=== PATIENT | female | born 1940 | race Hispanic/Latino ===

== ENCOUNTER 2017-02-23 21:09 | Observation (INO) | payer SELFPAY ==
[2017-02-23] MEDS ORDERED: Sodium Chloride 0.9% 1,000 ML IV STA (21:36)
--- NOTE | 2017-02-23 21:36 | ED PDOC ---
Arrival/HPI - General Chief Complaint: Chest Pain Time Seen by Provider: 02/23/17 21:15 Historian: Patient, Family (daughter translated ) - History of Present Illness Narrative History of Present Illness (Text): 02/23/17 21:32 76 year old female, whose past medical history includes arrhythma, left sided pacemaker, myocardial infarction, and CVA, presents to the emergency department complaining of midsternal chest pain that began last night. Patient's daughter who translated for the patient states that she had low irregular blood pressure since her flight home last night from [place]. She reports her blood pressure was around "64/42 and 90/60" last night. Patient states to have weakness, dehydration, nausea, shortness of breath, and diaphoresis, but denies any fever , chest pain, shortness of breath, vomiting, diarrhea, urinary symptoms, back pain, neck pain, headache, dizziness, or any other complaints. Time/Duration: Other (last night) Symptom Onset: Gradual Symptom Course: Unchanged Quality: Pressure Activities at Onset: Light Context: Other (Patient was on a plane last night) Past Medical History - Provider Review Nursing Documentation Reviewed: Yes - Travel History Have you recently traveled outside [place] w/in the past 3 mons?: Yes If Yes, travel location?: [place] - Infectious Disease Hx of Infectious Diseases: None - Tetanus Immunization Tetanus Immunization: Unknown - Cardiac Hx Cardiac Arrhythmia: Yes Hx HI: Yes Hx Hypertension: Yes Hx Pacemaker: Yes - Neurological HX Cerebrovascular Accident: Yes - Endocrine/Metabolic Hx Hypothyroidism: Yes - Psychiatric Hx Depression: No Hx Emotional Abuse: No Hx Physical Abuse: No Hx Substance Use: No - Suicidal Assessment Feels Threatened In Home Enviroment: No Family/Social History - Physician Review Nursing Documentation Reviewed: Yes Family/Social History: No Known Family HX Smoking Status: no Hx Alcohol Use: No Hx Substance Use: No Allergies/Home Meds Allergies/Adverse Reactions: Allergies No Known Allergies Allergy (Verified 05/23/13 10:53) Home Medications: Home Meds Medication Instructions Recorded Confirmed Biosotal 80 80 mg PO DAILY 02/23/17 02/23/17 Diuver 5 mg PO DAILY 02/23/17 02/23/17 Valsartan [Diovan] 160 mg PO DAILY 02/23/17 02/23/17 Review of Systems - Physician Review All systems were reviewed & negative as marked: Yes - Review of Systems Constitutional: absent: Fevers Respiratory: SOB Cardiovascular: Chest Pain Gastrointestinal: Nausea, Appetite Changes (Dehyradtion ). absent: Diarrhea, Vomiting Genitourinary Female: absent: Dysuria, Frequency, Hematuria Musculoskeletal: absent: Back Pain, Neck Pain Neurological: absent: Headache, Dizziness Endocrine: Diaphoresis Physical Exam - Physical Exam Narrative Physical Exam (Text): 02/23/17 21:32 Constitutional: No acute distress. Head: Normocephalic. Atraumatic. Eyes: PERRL. ENT: Moist mucous membranes. Neck: Supple. Cardiovascular: irregular rhythm. Left sided pacemaker. Chest: No tenderness. Respiratory: Clear to auscultation bilaterally. GI: Soft. Nontender. Nondistended. Back: No CVA tenderness. Musculoskeletal: Mild lower extremity edema. Skin: No rash. Neurologic: Alert, no focal deficit. Vital Signs Reviewed: Yes Vital Signs Temp Pulse Resp BP Pulse Ox 02/24/17 01:36 100 H 16 80/46 L 97 02/24/17 00:50 108 H 16 88/49 L 98 02/24/17 00:30 101 H 16 72/46 L 96 02/23/17 23:54 104 H 16 97/58 L 97 02/23/17 23:45 105 H 16 97/58 L 97 02/23/17 21:52 115 H 85/61 L 02/23/17 21:10 97.7 F 117 H 18 88/52 L 97 Temperature: Afebrile Blood Pressure: Hypotensive Pulse: Tachycardic Respiratory Rate: Normal Appearance: Positive for: Well-Appearing, Non-Toxic, Comfortable Pain Distress: None Mental Status: Positive for: Alert and Oriented X 3 Medical Decision Making ED Course and Treatment: 02/23/17 21:36 Impression: 76 year old female present complaining of midsternal chest pain associated with irregular low blood pressure post flight and shortness of breath. Plan: -- Labs -- IV Fluids -- Lopressor -- Urine Culture -- Urinalysis -- EKG -- Reassess and disposition Progress Notes: 02/23/17 21:49 EKG shows Atrial fibrillation at 122 BPM, PVC, with no ST elevations or depressions. 02/23/17 23:[address] Baron who is aware and agrees with the plan. Accepts patient into service. Patient will go to ICU observation for chest pain, tachycardia, hypotension, rapid afib, UTI. - Lab Interpretations Lab Results: 02/23/17 21:30 02/23/17 21:30 Lab Results 02/23/17 21:52: Urine Color Yellow, Urine Appearance Clear, Urine pH 6.0, Ur Specific [place] 1.025, Urine Protein Negative, Urine Glucose (UA) Negative, Urine Ketones Trace H, Urine Blood Trace-intact H, Urine Nitrate Negative, Urine Bilirubin Negative, Urine Urobilinogen 0.2, Ur Leukocyte Esterase Moderate H, Urine RBC 1 - 3, Urine WBC 20 - 25, Ur Epithelial Cells 4 - 5, Amorphous Sediment Few, Urine Bacteria Many, Hyaline Casts 1-3, Fine Granular Casts 0 - 2, Urine Other Uyeast 02/23/17 21:30: Sodium 142, Potassium 4.5, Chloride 108 H, Carbon Dioxide 26, Anion Gap 13, BUN 25 H, Creatinine 1.2, Est GFR ( Amer) 53, Est GFR (Non- Af Amer) 44, Random Glucose 102, Calcium 9.5, Total Bilirubin 0.5, AST 46 H, ALT 46, Alkaline Phosphatase 66, Total Creatine Kinase 425 H, CK-MB (CK-2) 5.2 H , CK-MB (CK-2) % 1.2 L, Troponin I 0.03, NT-Pro-B Natriuret Pep 2210 H, Total Protein 6.0, Albumin 3.6, Globulin 2.4, Albumin/Globulin Ratio 1.5, Lipase 59 02/23/17 21:30: PT 10.9, INR 1.01, APTT 25.7, D-Dimer, Quantitative 0.27 02/23/17 21:30: WBC 7.2, RBC 4.36, Hgb 12.0, Hct 38.1, MCV 87.4, MCH 27.5, MCHC 31.5, RDW 16.5 H, Plt Count 150, MPV 11.3 H, Gran % 48.0 L, Lymph % (Auto) 37.0 H, [place] % (Auto) 12.9 H, Eos % (Auto) 1.5, Baso % (Auto) 0.6, Gran # 3.45, Lymph # 2.7, [place] # 0.9 H, Eos # 0.1, Baso # 0.04 I have reviewed the lab results: Yes - EKG Interpretation Interpreted by ED Physician: Yes Type: 12 lead EKG - Medication Orders Current Medication Orders: Acetaminophen (Tylenol 325mg Tab) 650 mg PO Q6H PRN PRN Reason: Pain, moderate (4-7) Aspirin (Aspirin Chewable) 81 mg PO DAILY JOSE F Atorvastatin Calcium (Lipitor) 20 mg PO HS JOSE F Ciprofloxacin (Cipro) 250 mg PO Q12H JOSE F PRN Reason: Protocol Heparin Sodium (Porcine) (Heparin Lock Flush) 0 units IVP Q4H JOSE F PRN Reason: Protocol Amiodarone HCl/Dextrose (Nexterone 360 Mg In D5w 200 Ml (Premix)) 360 mg in 200 mls @ 16.667 mls/hr IV .Q12H JOSE F; 0.5 MG/MIN PRN Reason: Protocol Amiodarone HCl/Dextrose (Nexterone 360 Mg In D5w 200 Ml (Premix)) 360 mg in 200 mls @ 33.333 mls/hr IV .Q6H ONE; 1 MG/MIN PRN Reason: Protocol Stop: 02/24/17 07:14 Metoprolol Tartrate (Lopressor) 25 mg PO BID JOSE F Pantoprazole Sodium (Protonix Susp) 40 mg PO 0600,1600 JOSE F Rivaroxaban (Xarelto) 20 mg PO DAILY JOSE F PRN Reason: Protocol Discontinued Medications Aspirin (Aspirin) 325 mg PO STAT STA Stop: 02/23/17 22:43 Last Admin: 02/23/17 23:31 Dose: 325 mg Sodium Chloride (Sodium Chloride 0.9%) 1,000 mls @ 999 mls/hr IV .Q1H1M STA Stop: 02/23/17 22:36 Last Admin: 02/23/17 21:52 Dose: 999 mls/hr Ciprofloxacin (Cipro 400mg/200ml Dsw) 400 mg in 200 mls @ 133.3 mls/hr IVPB STAT STA PRN Reason: Protocol Stop: 02/24/17 00:18 Last Admin: 02/23/17 23:31 Dose: 133.3 mls/hr Amiodarone HCl/Dextrose (Nexterone 150 Mg In Dextrose 100 Ml (Premix)) 150 mg in 100 mls @ 600 mls/hr IVPB ONCE ONE PRN Reason: Protocol Stop: 02/24/17 00:55 Sodium Chloride (Sodium Chloride 0.9%) 1,000 mls @ 75 mls/hr IV .[id number] ONE Stop: 02/24/17 14:02 Iodixanol (Visipaque 320 Mg/Ml 100 Ml) Confirm Administered Dose 100 ml IV .STK- MED ONE Stop: 02/23/17 22:39 Metoprolol Tartrate (Lopressor) 5 mg IVP STAT STA Stop: 02/23/17 21:38 Last Admin: 02/23/17 21:52 Dose: 5 mg - Scribe Statement The provider has reviewed the documentation as recorded by the Yamilethibkrista Olmstead All medical record entries made by the Roney were at my direction and personally dictated by me. I have reviewed the chart and agree that the record accurately reflects my personal performance of the history, physical exam, medical decision making, and the department course for this patient. I have also personally directed, reviewed, and agree with the discharge instructions and disposition. Disposition/Present on Arrival - Present on Arrival Any Indicators Present on Arrival: No History of DVT/PE: No History of Uncontrolled Diabetes: No Urinary Catheter: No History of Decub. Ulcer: No History Surgical Site Infection Following: None - Disposition Have Diagnosis and Disposition been Completed?: Yes Diagnosis: Rapid atrial fibrillation, Chest pain, UTI (urinary tract infection) Disposition: HOSPITALIZED Disposition Time: 23:09 Patient Plan: Admission, ICU Condition: FAIR
[2017-02-23] MEDS ORDERED: Metoprolol 1 mg/ml Inj IVP STA (21:37)
[2017-02-23 21:48] LABS: BASO # 0.04 K/mm3 (0.0-2.0); BASO % 0.6 % (0.0-3.0); EOS # 0.1 (0.0-0.7); EOS % 1.5 % (1.5-5.0); GRAN # 3.45 (1.4-6.5); HEMATOCRIT 38.1 % (36.0-48.0); LYMPH # 2.7 (1.2-3.4); MEAN CELL VOLUME 87.4 fl (80.0-105.0); MEAN CORPUSCULAR HEMOGLOBIN 27.5 pg (25.0-35.0); MEAN CORPUSCULAR HGB CONC 31.5 g/dl (31.0-37.0); MEAN PLATELET VOLUME 11.3 fl (7.0-11.0); MONO # 0.9 (0.1-0.6); MONO % 12.9 % (1.0-6.0); RED CELL DISTRIBUTION WIDTH 16.5 % (11.5-14.5); WHITE BLOOD COUNT 7.2 10^3/ul (4.5-11.0)
[2017-02-23 21:56] LABS: ALB/GLOB RATIO 1.5 (1.1-1.8); BILIRUBIN,TOTAL 0.5 mg/dL (0.2-1.3); CALCIUM 9.5 mg/dL (8.4-10.5); POTASSIUM 4.5 mmol/L (3.6-5.0)
[2017-02-23 22:05] LABS: URINE BILIRUBIN NEGATIVE (NEGATIVE); URINE BLOOD TRACE-INTACT (NEGATIVE); URINE GLUCOSE (UA) NEGATIVE (NEGATIVE); URINE KETONE TRACE mg/dL (NEGATIVE); URINE LEUKOCYTE ESTERASE MODERATE Leu/uL (NEGATIVE); URINE PROTEIN NEGATIVE mg/dL (<30 mg/dL); URINE UROBILINOGEN 0.2 E.U./dL (<1 E.U./dL)
[2017-02-23 22:06] LABS: URINE APPEARANCE CLEAR (CLEAR); URINE COLOR YELLOW (YELLOW)
[2017-02-23 22:08] LABS: TROPONIN I 0.03 ng/mL
[2017-02-23 22:13] LABS: D DIMER 0.27 mg/L FEU (0-0.50); INR 1.01 (0.93-1.08); PARTIAL THROMBOPLASTIN TIME 25.7 Seconds (23.7-30.8)
[2017-02-23 22:22] LABS: URINE BACTERIA MANY (NEG); URINE WBC 20 - 25 /hpf (0-6)
[2017-02-23 22:23] LABS: URINE AMORPHOUS SEDIMENT FEW
[2017-02-23] MEDS ORDERED: Iodixanol 320 MG/ML 100 ML BOTTLE IV ONE (22:38)
[2017-02-23] MEDS ORDERED: Ciprofloxacin 400mg/200ml D5W 400 MG/200 ML BAG IVPB STA (22:48)
[2017-02-24] MEDS ORDERED: Sodium Chloride 0.9% 1,000 ML IV ONE (00:43)
[2017-02-24] MEDS ORDERED: Amiodarone 150 mg/D5W 100 ml 150 MG/100 ML BAG IVPB ONE (00:46)
--- NOTE | 2017-02-24 01:02 | CP.PCM.CON ---
<LAIMONISHA - Last Filed: 02/24/17 00:58> History of Present Illness - History of Present Illness History of Present Illness: Monisha Nicole, PGY1, Consult Note for Dr. 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 Pt just landed from her flight yesterday night from [place], and started feeling fatigues, diaphoretic, chest pressure, radiating to left jaw, palpitations. Pt also c/o mild productive cough, denies f/c/n/v, poor appetite, poor oral intake, sob, hemoptysis, pleutric cp, dysuria, frq, hematuria, h/a, leg swelling. Pt's daughter took BP at home and pt founf to be hypotensive, BP 64/42, 90/60, with some denies dizziness, syncope. In ED, pt found to be in afib with RVR, HR 122 , no st changes, hypotensive 70-80s/50s, neg d dimer, trop negx1, bnp 2210, ck mb 5.2. Received ASA 325 mgx1, lopressor 5mg IVx1, 1L NS bolus, Ciprox1, UA + UTI Currently, pt still hypotensive, afib with HR 115, denies chest pressure, + palpitations. ICU consulted for management of afib with RVR with underlying UTI. 10 point ROS obtained and neg except as per HPI. PMH: afib, L sided pacemaker, ME x 1 stent, CVA, HTN, hypothyroidism, CHF PSH: thryoidectomy, uterine fibroid removal ALL: NKA SH: Mom, htn Brother HTN FH: denies alcohol, tobacco, drug use. lives with daughter's apt in [place]. Flew from [place] last night. Walks by self, fully functional. No PMD in [place]; f/u regularly with PMD in [place] Review of Systems - Review of Systems All systems: reviewed and no additional remarkable complaints except Review of Systems: as per HPI Past Patient History - Infectious Disease Hx of Infectious Diseases: None - Tetanus Immunizations Tetanus Immunization: Unknown - Past Social History Smoking Status: no - CARDIAC Hx Cardia Arrhythmia: Yes Hx Heart Attack: Yes Hx Hypertension: Yes Hx Pacemaker: Yes - NEUROLOGICAL HX Cerebrovascular Accident: Yes - ENDOCRINE/METABOLIC Hx Hypothyroidism: Yes - PSYCHIATRIC Hx Depression: No Hx Emotional Abuse: No Hx Physical Abuse: No Hx Substance Use: No Meds Home Medications: Home Medication List Medication Instructions Recorded Confirmed Type Cephalexin [Keflex] 500 mg PO Q8 #15 cap 02/25/17 Rx Digoxin 0.125 mg PO DAILY #30 solution 02/25/17 Rx Levothyroxine [Synthroid] 112 mcg PO 0600 #30 tab 02/25/17 Rx Rivaroxaban [Xarelto] 20 mg PO DAILY #30 tab 02/25/17 Rx Simvastatin [Zocor] 20 mg PO DAILY #30 tablet 02/25/17 Rx Allergies/Adverse Reactions: Allergies Allergy/AdvReac Type Severity Reaction Status Date / Time No Known Allergies Allergy Verified 05/23/13 10:53 - Medications Medications: Current Medications Acetaminophen (Tylenol 325mg Tab) 650 mg PO Q6H PRN PRN Reason: Pain, moderate (4-7) Aspirin (Aspirin Chewable) 81 mg PO DAILY JOSE F Atorvastatin Calcium (Lipitor) 20 mg PO HS JOSE F Ciprofloxacin (Cipro) 250 mg PO Q12H JOSE F PRN Reason: Protocol Amiodarone HCl/Dextrose (Nexterone 360 Mg In D5w 200 Ml (Premix)) 360 mg in 200 mls @ 16.667 mls/hr IV .Q12H JOSE F; 0.5 MG/MIN PRN Reason: Protocol Sodium Chloride (Sodium Chloride 0.9%) 1,000 mls @ 75 mls/hr IV .[id number] ONE Stop: 02/24/17 14:02 Metoprolol Tartrate (Lopressor) 25 mg PO BID JOSE F Pantoprazole Sodium (Protonix Susp) 40 mg PO 0600,1600 JOSE F Rivaroxaban (Xarelto) 20 mg PO DAILY JOSE F PRN Reason: Protocol Physical Exam - Constitutional Appears: Non-toxic, No Acute Distress, Younger Than Stated Age - Head Exam Head Exam: ATRAUMATIC, NORMOCEPHALIC - Eye Exam Eye Exam: EOMI, PERRL Pupil Exam: NORMAL ACCOMODATION, PERRL. absent: Irregular, Unequal - ENT Exam ENT Exam: Mucous Membranes Moist - Neck Exam Neck exam: Positive for: Normal Inspection. Negative for: Lymphadenopathy, Thyromegaly - Respiratory Exam Respiratory Exam: Decreased Breath Sounds, NORMAL BREATHING PATTERN. absent: Accessory Muscle Use - Cardiovascular Exam Cardiovascular Exam: Tachycardia, Irregular Rhythm. absent: Systolic Murmur - GI/Abdominal Exam GI & Abdominal Exam: Normal Bowel Sounds, Soft. absent: Guarding, Tenderness - Extremities Exam Extremities exam: Negative for: calf tenderness, pedal edema - Neurological Exam Neurological exam: Alert, Oriented x3 - Psychiatric Exam Psychiatric exam: Normal Mood - Skin Skin Exam: Dry, Warm Results - Vital Signs Recent Vital Signs: Last Vital Signs Temp 97.7 F 02/23/17 21:10 Pulse 104 H 02/23/17 23:54 Resp 16 02/23/17 23:54 BP 97/58 L 02/23/17 23:54 Pulse Ox 97 02/23/17 23:54 - Labs Result Diagrams: 02/23/17 21:30 02/23/17 21:30 Assessment & Plan - Assessment and Plan (Free Text) Assessment: 80F with PMH significant for paroxysmal afib, pacemaker, ME, CVA, HTN, CHF, admitted to ICU for afib with RVR triggered by underlying UTI. Pt also found to be in acute on chronic CHF exacerbation, r/o ACS. Plan: Afib with RVR 2/2 likely underlying UTI: - Pt has a hx of afib, diagnosed 2 years ago. On home xarelto and biosotal in [place]. - EKG shows HR 122, afib with RVR, no st changes. - Hypotensive 70-80's/50s, afebrile. Admit to ICU. - received lopressor 5mg IV x1, 1L NS bolus and Ciprox1 in ED - Started on Amiodarone drip, amio bolus given. Will hold IVF bc hx of CHF. - Will start metoprolol 25 mg PO BID - VS q1h, f/u cardio c/s - Tylenol prn pain; Started on Cipro for UTI - C/w home xarelto - f.u CXR Chest pain, r/o ACS: - trop neg x1, f/u serial trops with EKG - EKG shows no ST changes. - f/u lipid panel, tsh, hgb a1c Hx of CHF: - f/u Echo, will hold home diuretics Hx of L sided pacemaker: - Likely due to elevated HR and decreasing BP - Cardio c/d placed, please interrogate pacemaker Hx HTN: - currently hypotensive. will hold home anti HTN meds. Hx of Hypothyroidism 2/2 thryoidectomy in the past: - home med dosage not known - will f/u tsh, f4 and determine synthroid usage inpatient GI ppx: protonix DVT ppx: xarelto Discussed with attending, Dr Loraine Nicole, PGY1 - Date & Time Date: 02/24/17 Time: 01:33 <Loraine HIGH,Yovanny - Last Filed: 02/27/17 09:49> Results - Vital Signs Recent Vital Signs: Last Vital Signs Temp 97 F L 02/25/17 11:17 Pulse 101 H 02/25/17 11:17 Resp 18 02/25/17 11:17 BP 130/77 02/25/17 11:17 Pulse Ox 97 02/25/17 06:00 - Labs Result Diagrams: 02/25/17 06:42 02/25/17 06:42 Labs: Laboratory Results - last 24 hr 02/24/17 01:53 Hemoglobin A1c 5.6 Attending/Attestation - Attestation I have personally seen and examined this patient.: Yes I have fully participated in the care of the patient.: Yes I have reviewed all pertinent clinical information: Yes Notes (Text): -I agree with the above H&P completed by the resident physician with the following changes and/or additions: -The patient is a 80 year old woman with a history of paroxysmal a-fib, pacemaker, ME, CVA, HTN and CHF, being admitted to ICU for a-fib with RVR, likely triggered by underlying UTI. Cardiology has been consulted and a 2D-echo ordered. Amio drip will be started given low-normal BP's in the ED.
[2017-02-24] MEDS ORDERED: Amiodarone 360 mg/D5W 200 ml 360 MG/200 ML BAG IV ONE (01:15)
[2017-02-24 02:04] LABS: CHOLESTEROL 164 mg/dL (130-200)
[2017-02-24 02:22] LABS: FREE T4 1.64 ng/dL (0.78-2.19)
[2017-02-24 02:36] LABS: THYROID STIMULATING HORMONE 1.18 mIU/mL (0.46-4.68)
[2017-02-24] MEDS ORDERED: Sodium Chloride 0.9% 500 ML IV STA ×2 (02:57→03:31)
[2017-02-24 04:50] VITALS: BMI 34.2
[2017-02-24 05:00] LABS: TROPONIN I 0.01 ng/mL
[2017-02-24] MEDS: Pantoprazole 40 mg Susp UD PO SCH (05:33)
[2017-02-24] MEDS ORDERED: Amiodarone 360 mg/D5W 200 ml 360 MG/200 ML BAG IV SCH (07:15)
--- NOTE | 2017-02-24 08:35 | RAD ---
HISTORY: r/o pna COMPARISON: None available. TECHNIQUE: Chest, one view. FINDINGS: Examination limited by habitus and hypoinflation. LUNGS: Patchy opacity at the left lung base may reflect atelectasis versus developing infiltrate. Bilateral hilar prominence. Please note that chest x-ray has limited sensitivity for the detection of pulmonary masses. PLEURA: No significant pleural effusion identified. No definite pneumothorax . CARDIOVASCULAR: Dual lead left-sided pacemaker. Heart size appears top normal. Ectatic aorta. Atherosclerotic calcifications of the aortic knob. OSSEOUS STRUCTURES: No acute osseous abnormality identified. VISUALIZED UPPER ABDOMEN: Unremarkable. OTHER FINDINGS: None. IMPRESSION: Hypoinflation. Patchy opacity at the left lung base may reflect atelectasis versus developing infiltrate. Bilateral hilar prominence.
--- NOTE | 2017-02-24 08:53 | CARD ---
APPROVED REPORT EKG Measurement Heart [id number] <Conclusion> Atrial fibrillation Cannot rule out Inferior infarct, age undetermined Abnormal ECG
--- NOTE | 2017-02-24 08:57 | CARD ---
APPROVED REPORT EKG Measurement Heart [id number] <Conclusion> Atrial fibrillation with rapid ventricular response with premature ventricular or aberrantly conducted complexes Abnormal QRS-T angle, consider primary T wave abnormality Abnormal ECG
--- NOTE | 2017-02-24 10:47 | PN ---
DATE: 02/24/2017 RESIDENTIAL SUBSTANCE ABUSE COUNSELOR NOTE SUBJECTIVE: The patient is awake and alert, and is [place]ian and speaks no Maori. We had a [place]awian e commerce strategist to help us with her symptoms and history today. The patient states she has a little cough and some mild congestion, but no chest pain, no fever or chills, no nausea or vomiting, no abdominal pain, no diarrhea. She was admitted to the intensive care unit for atrial fibrillation and rapid ventricular response. Her heart rate is stable this morning. The patient did have some hypotension as well, but at this time, her systolic is 116. PHYSICAL EXAMINATION: VITAL SIGNS: Note that her temperature is 98, her pulse is 88, respirations are 16 and her BP is 116/60. SKIN: Warm and dry. HEENT: Head is atraumatic and normocephalic. Eyes; reactive to light. Ear, nose and throat seem to be within normal limits. NECK: Supple. No JVD. No thyroid enlargement. No lymph nodes. HEART: Appeared regular rate and rhythm. Normal S1 and S2. LUNGS: Reveal good breath sounds bilaterally. ABDOMEN: Soft, nontender, decreased bowel sounds. GENITALIA AND RECTAL: Deferred. MUSCULOSKELETAL: No joint deformities. EXTREMITIES: Reveal no significant edema. NEUROLOGIC: She seems to be grossly intact. LABORATORY DATA: As far as her laboratories are concerned, her white count is 7.2, hemoglobin is 12.0, hematocrit 38.1 with platelets of 150,000. Sodium is 142, potassium 4.5, chloride 108, CO2 of 26 with a BUN of 25, creatinine of 1.2 and a glucose of 102. The patient's BNP is 2210. Troponins are negative. As far as chest x-ray, it is pending. IMPRESSION: This patient has presented with chest pain and noted to have a urinary tract infection as well. She has atrial fibrillation and an episode of rapid ventricular response. The patient has chronic kidney disease as well as history of myocardial infarction x2, coronary artery disease and one stent placed, history of congestive heart failure, hypothyroidism and hypertension. PLAN: We will continue with our cardiac workup. The patient is getting antibiotics for the UTI. We will continue to monitor closely and the patient is getting aspirin as well as Cipro and metoprolol and Protonix. We will continue her Xarelto and she will get some Tylenol for p.r.n. pain. We will continue to follow closely and treat aggressively along with the other consultants and the primary care doctor. Guicho Leyva MD
--- NOTE | 2017-02-24 11:04 | CARD ---
APPROVED REPORT EXAM: Two-dimensional and M-mode echocardiogram with Doppler and color Doppler. INDICATION 2D DIMENSIONS IVSd1.5 (0.7-1.1cm)LVDd4.6 (3.9-5.9cm) PWd1.5 (0.7-1.1cm)LVDs3.7 (2.5-4.0cm) FS (%) 20.3 %LVEF (%)41.5 (>50%) M-Mode DIMENSIONS Left Atrium (MM)3.70 (2.5-4.0cm)Aortic Root3.30 (2.2-3.7cm) Aortic Cusp Exc.2.10 (1.5-2.0cm) Aortic Valve AoV Peak Xchhjenk289.0cm/Reena Peak GR.7mmHg Mitral Valve MV E Esxgueyu49.9cm/sMV E Peak Gr.85mmHg TDI Lateral E' Peak V11.80cm/sMedial E' Peak V9.36cm/sE/Lateral E'7.3 E/Medial E'9.2 Tricuspid Valve TR Peak [id number] [id number] Peak Gr.19mmHg [id number] LEFT VENTRICLE The left ventricle is normal size. There is moderate concentric left ventricular hypertrophy. The left ventricular function is normal. The left ventricular ejection fraction is within the normal range. There is normal LV segmental wall motion. RIGHT VENTRICLE The right ventricle is normal size. The right ventricular systolic function is normal. ATRIA The left atrium size is normal. The right atrium size is normal. The interatrial septum is intact with no evidence for an atrial septal defect. AORTIC VALVE The aortic valve is moderately sclerotic. No aortic regurgitation is present. There is no aortic valvular stenosis. MITRAL VALVE The mitral valve is normal in structure. Mitral regurgitation is mild. TRICUSPID VALVE The tricuspid valve is normal in structure. GREAT VESSELS The aortic root is normal in size. The IVC is normal in size and collapses >50% with inspiration. PERICARDIAL EFFUSION There is no pleural effusion. There is no pericardial effusion. <Conclusion> Normal chamber size. Normal LV systolic function. Moderate concentric LVH. Mild MR.
[2017-02-24] MEDS: cefTRIAXone 1 gm 1 GM/100 ML BAG IVPB SCH (11:08)
[2017-02-24] MEDS: Levothyroxine 112 MCG TAB PO SCH (11:09)
[2017-02-24] MEDS ORDERED: Digoxin 500 mcg/2ml (0.5 mg/2ml) Inj IV ONE (11:30)
[2017-02-24 14:43] LABS: TROPONIN I < 0.01 ng/mL
[2017-02-24] MEDS ORDERED: Digoxin 250 mcg (0.25 mg) Tab PO ONE (18:00)
[2017-02-24 19:04] VITALS: PULSE 108
[2017-02-24 22:26] LABS: TROPONIN I < 0.01 ng/mL
--- NOTE | 2017-02-24 22:51 | CON ---
DATE: 02/24/2017 REQUESTING PHYSICIAN: Dr. Chavez. REASON FOR CONSULTATION: Chest pain and atrial fibrillation. HISTORY OF PRESENT ILLNESS: This is a 76-year-old woman who recently immigrated from [place] with history of coronary artery disease and atrial fibrillation who presents to emergency room complaining of chest pain and palpitations. She reportedly had low blood pressure yesterday and she presented to the emergency room and was admitted. She was initially placed on IV amiodarone. She had transient hypotension improved with IV fluids. Full details or prior workup in [place] are unclear, but apparently she has known coronary artery disease and prior myocardial infarction and she also has history of nonspecific cerebrovascular accident. She does have atrial fibrillation and permanent pacemaker implanted as well. PAST MEDICAL HISTORY: As mentioned above. MEDICATIONS: At home included anticoagulant and beta-siomara. ALLERGIES: NONE. SOCIAL HISTORY: Does not smoke or drink. FAMILY HISTORY: Unremarkable for premature heart disease. REVIEW OF SYSTEMS: Limited, but unremarkable. PHYSICAL EXAMINATION: GENERAL: She is anxious appearing middle age woman. VITAL SIGNS: Her blood pressure is 122/90 with a pulse of 120 in atrial fibrillation, respiratory rate is 16 and she is afebrile. HEENT: Normocephalic and atraumatic. NECK: Supple. No JVD. CHEST: Few scattered rhonchi. HEART: PMI displaced laterally with an irregularly irregular rhythm. ABDOMEN: Soft and nontender. Normoactive bowel sounds. EXTREMITIES: No clubbing, cyanosis, or edema. SKIN: Warm and dry. PSYCHIATRIC: Normal mood and affect. NEUROLOGIC: No gross motor sensory deficits appreciable. DIAGNOSTIC DATA: Electrocardiogram reveals atrial fibrillation with left ventricular response and nonspecific ST-T abnormalities. Chest x-ray reveals enlarge cardiac silhouette with possible basilar atelectasis. Dual chamber pacing system is in place. Echocardiogram reveals normal chamber size, normal LV systolic function, and moderate concentric LVH with mild mitral regurgitation. White count is 7.2, hemoglobin is 12.0, hematocrit 38.1 with platelet count of 150,000. PT and PTT normal. Potassium is 4.5, BUN and creatinine 25 and 1.2. Troponin is 0.03 and 0.01. Cholesterol 164 with an LDL of 95, HDL 29, and triglycerides 264. TSH 1.18. IMPRESSION: 1. Chest pain, unclear if this is anginal in nature. 2. Atrial fibrillation apparently chronic with suboptimal artery control at the present time. 3. History of nonspecific cerebrovascular accident. 4. Transient hypotension. RECOMMENDATIONS: Beta-siomara therapy as initiating will be continued and although will be held for transient hypotension. Xarelto has been given and it will be continued as well. Aspirin and statin therapy will be continued. Attempts will remain to determine extent of her cardiac workup in [place]. Given her suboptimal control, digoxin can be added at this time. She does not appear to tolerate higher doses of beta-blockers. Thank you for this consultation, we will have you followed through the hospital course. Derek Calzada MD
--- NOTE | 2017-02-25 03:09 | CON ---
DATE: 02/24/2017 The patient is seen in the ICU. Infectious Disease consultation requested. CHIEF COMPLAINT: Weakness. HISTORY OF PRESENT ILLNESS: This 76-year-old Mongolian female, who was seen in the emergency room by Dr. Derek Emery yesterday and the patient has a history of left-sided chest pacemaker, coronary artery disease, myocardial infarction, cerebrovascular accident, and was admitted to the emergency room with midsternal chest pain and the patient also with cardiac arrhythmias and appeared to have hypotension and was transferred to the unit for further care. REVIEW OF SYSTEMS: Reveals the patient has no fevers and no chills. No chest pain now. She states she does have dysuria and frequency. No abdominal pain, diarrhea or constipation. No bright red blood per rectum. No melena. PAST MEDICAL HISTORY: Significant for coronary artery disease, cardiac arrhythmias, cerebrovascular accident and myocardial infarction. Patient also has hypothyroidism. PAST SURGICAL HISTORY: Significant for pacemaker. ALLERGIES: THE PATIENT HAS NO KNOWN ALLERGIES. MEDICATIONS AT HOME: Include the patient to be on Diovan, . TRAVEL HISTORY: She has been recently to [place]. PHYSICAL EXAMINATION: VITAL SIGNS: The patient's temperature is 97, blood pressure 120/80, respiratory rate of 23, patient's heart rate went up to 125, down to 85 now, was over a 100 . HEENT: Unremarkable. NECK: Supple. LUNGS: Decreased breath sounds. HEART: Normal S1 and S2. ABDOMEN: Soft and nontender. LABORATORY DATA: Reveals a white count of 7.4, hemoglobin of 12, platelets of 150, 48% granulocytosis and 37% lymphocytosis. Coagulation is noted. The patient has a BUN of 25, creatinine of 1.2. CK is 425. BNP is 2210. Urinalysis reveals 20-25 WBCs, many bacteria. Consultation by Dr. Monisha Nicole is noted. The patient also had an EKG. The patient's troponins are negative x2. An EKG is noted. Atrial fibrillation cannot be ruled out, inferior infarct, age indeterminate, and chest x-ray reveals patchy opacity of left lung base may reflect atelectasis versus developing infiltrate. ASSESSMENT AND PLAN: A 76-year-old Mongolian female with history of coronary artery disease, myocardial infarction, cerebrovascular accident, arrhythmia, hypothyroidism with respiratory rate of 23 and heart rate of 125, positive urinalysis and sepsis with urine as a source, atrial fibrillation with rapid ventricular response. We will treat the patient now with ceftriaxone, discontinue the Cipro. Treat the patient with ceftriaxone 1 g q. 24 hours, pending blood cultures, urine cultures and procalcitonin level. We will follow closely with you. Kendall Dias MD
[2017-02-25] MEDS: Levothyroxine 112 MCG TAB PO SCH (05:19)
[2017-02-25] MEDS ORDERED: Pantoprazole 40 mg EC Tab PO SCH (06:00)
[2017-02-25 06:32] VITALS: O2SAT 97
--- NOTE | 2017-02-25 06:49 | PN ---
DATE: 02/25/2017 SUBJECTIVE: The patient is seen lying in bed on telemetry. She is currently comfortable at the present time. Heart rate control has improved. She complains of a cough. She denies any chest pain and dyspnea. PHYSICAL EXAMINATION GENERAL: She is a middle-aged women, who appears comfortable at rest. VITAL SIGNS: Blood pressure 118/70, pulse between 70 and 90 in atrial fibrillation; and respirations 16. She is afebrile. HEENT: No JVD. HEART: PMI in normal position. Rhythms are irregularly regular. Systolic murmur is present at the lower left sternal border. LUNGS: Few scattered rhonchi. ABDOMEN: Soft. Nontender. Normoactive bowel sounds. EXTREMITIES: No edema. LABORATORY DATA: Two sets of troponins are negative. Rest of the morning blood work is pending. MEDICATIONS: Her current medications include aspirin, digoxin 0.25 mg daily, Lipitor 20 mg daily, metoprolol 25 mg b.i.d., Protonix 40 mg daily, Rocephin, Synthroid 112 mcg daily, and Xarelto 20 mg daily. IMPRESSION: 1. Chronic atrial fibrillation with improved rate control. 2. Recent chest pain, no evidence of acute cardiac ischemia. 3. History of prior cerebrovascular accidents. RECOMMENDATIONS: Current medications will be continued. If her blood pressure tolerates and her rate becomes more elevated higher dose of beta-siomara therapy can be planned. Chronic anticoagulation appears appropriate at this time. If not recently performed an outpatient stress test, it should be considered. We will be happy to follow him and make further recommendations as appropriate. Derek Calzada MD
[2017-02-25 06:50] LABS: BASO # 0.04 K/mm3 (0.0-2.0); BASO % 0.7 % (0.0-3.0); EOS # 0.1 (0.0-0.7); EOS % 2.3 % (1.5-5.0); GRAN # 3.18 (1.4-6.5); GRAN % 56.4 % (50.0-68.0); HEMATOCRIT 36.8 % (36.0-48.0); LYMPH # 1.7 (1.2-3.4); LYMPH % 29.4 % (22.0-35.0); MEAN CELL VOLUME 88.2 fl (80.0-105.0); MEAN CORPUSCULAR HEMOGLOBIN 27.6 pg (25.0-35.0); MEAN CORPUSCULAR HGB CONC 31.3 g/dl (31.0-37.0); MONO # 0.6 (0.1-0.6); MONO % 11.2 % (1.0-6.0); RED CELL DISTRIBUTION WIDTH 16.3 % (11.5-14.5); WHITE BLOOD COUNT 5.6 10^3/ul (4.5-11.0)
[2017-02-25 07:13] LABS: ALB/GLOB RATIO 1.3 (1.1-1.8); ALKALINE PHOSPHATASE 56 U/L (38-126); ALT/SGPT 42 U/L (7-56); AST/SGOT 32 U/L (14-36); BILIRUBIN,TOTAL 0.4 mg/dL (0.2-1.3); BLOOD UREA NITROGEN 17 mg/dL (7-21); CALCIUM 9.2 mg/dL (8.4-10.5); CHLORIDE 112 mmol/L (98-107); GFR AFRICAN-AMERICAN > 60; GLUCOSE,RANDOM 86 mg/dL (70-110); PHOSPHOROUS 2.5 mg/dL (2.5-4.5); POTASSIUM 5.2 mmol/L (3.6-5.0); SODIUM 142 mmol/L (132-148); TOTAL PROTEIN 5.4 g/dL (5.8-8.3)
[2017-02-25 07:51] LABS: CARBON DIOXIDE 26 mmol/L (21-33)
[2017-02-25] MEDS: Pantoprazole 40 mg Susp UD PO SCH (09:29)
[2017-02-25] MEDS: cefTRIAXone 1 gm 1 GM/100 ML BAG IVPB SCH (09:30)
[2017-02-25 11:18] VITALS: BP 130/77; PULSE 101; RESP 18; TEMP 97
--- NOTE | 2017-02-25 11:54 | PN ---
DATE: 02/25/2017 SUBJECTIVE: The patient is in bed in no acute distress, nontoxic. PHYSICAL EXAMINATION: VITAL SIGNS: Temperature 98, blood pressure 119/70, respiratory rate of 20. HEENT: Unremarkable. NECK: Supple. LUNGS: Decreased breath sounds. HEART: Normal S1 and S2. ABDOMEN: Soft, nontender. LABORATORY DATA: Reveals white count of 5.6, hemoglobin of 11, platelets of 105, BUN 17, creatinine of 0.8. Procalcitonin is 0.05. Chemistries are noted. Microbiology and urine culture is pending. Blood cultures are pending. Currently, the patient is on ceftriaxone. ASSESSMENT AND PLAN: This is a 76-year-old female with coronary artery disease, myocardial infarction, cerebrovascular accident, arrhythmia, hypothyroidism with dyspnea and tachycardia, positive urinalysis, sepsis and urine as a source, atrial fibrillation, rapid ventricular response. We will check on the urine and blood cultures and case discussed with the Dr. Chavez, primary doctor. Kendall Dias MD
[2017-02-25] MEDS ORDERED: Digoxin 250 mcg (0.25 mg) Tab PO SCH (14:00)
--- NOTE | 2017-02-25 17:07 | CP.PCM.DIS ---
<Armin You - Last Filed: 02/25/17 17:37> Provider - Provider Date of Admission: 02/23/17 23:09 Attending physician: Ajay Chavez MD Time Spent in preparation of Discharge (in minutes): 45 Diagnosis - Discharge Diagnosis (1) Rapid atrial fibrillation Status: Chronic (2) UTI (urinary tract infection) Status: Acute Hospital Course - Lab Results Lab Results: Micro Results 02/24/17 02:30 Naris MRSA Culture (Admit) - Final MRSA NOT DETECTED 02/24/17 11:50 Blood Blood Culture - Preliminary NO GROWTH AFTER 24 HOURS 02/24/17 11:30 Blood Blood Culture - Preliminary NO GROWTH AFTER 24 HOURS Most Recent Lab Values WBC 5.6 10^3/ul (4.5-11.0) D 02/25/17 06:42 RBC 4.17 10^6/uL (3.5-6.1) 02/25/17 06:42 Hgb 11.5 g/dL (12.0-16.0) L 02/25/17 06:42 Hct 36.8 % (36.0-48.0) 02/25/17 06:42 MCV 88.2 fl (80.0-105.0) 02/25/17 06:42 MCH 27.6 pg (25.0-35.0) 02/25/17 06:42 MCHC 31.3 g/dl (31.0-37.0) 02/25/17 06:42 RDW 16.3 % (11.5-14.5) H 02/25/17 06:42 Plt Count 105 10^3/uL (120.0-450.0) L 02/25/17 06:42 MPV 11.0 fl (7.0-11.0) 02/25/17 06:42 Gran % 56.4 % (50.0-68.0) 02/25/17 06:42 Lymph % (Auto) 29.4 % (22.0-35.0) 02/25/17 06:42 Collin % (Auto) 11.2 % (1.0-6.0) H 02/25/17 06:42 Eos % (Auto) 2.3 % (1.5-5.0) 02/25/17 06:42 Baso % (Auto) 0.7 % (0.0-3.0) 02/25/17 06:42 Gran # 3.18 (1.4-6.5) 02/25/17 06:42 Lymph # 1.7 (1.2-3.4) 02/25/17 06:42 Collin # 0.6 (0.1-0.6) 02/25/17 06:42 Eos # 0.1 (0.0-0.7) 02/25/17 06:42 Baso # 0.04 K/mm3 (0.0-2.0) 02/25/17 06:42 PT 10.9 Seconds (9.9-11.8) 02/23/17 21:30 INR 1.01 (0.93-1.08) 02/23/17 21:30 APTT 25.7 Seconds (23.7-30.8) 02/23/17 21:30 D-Dimer, Quantitative 0.27 mg/L FEU (0-0.50) 02/23/17 21:30 Sodium 142 mmol/L (132-148) 02/25/17 06:42 Potassium 5.2 mmol/L (3.6-5.0) H 02/25/17 06:42 Chloride 112 mmol/L (98-107) H 02/25/17 06:42 Carbon Dioxide 26 mmol/L (21-33) 02/25/17 06:42 Anion Gap 9 (10-20) L 02/25/17 06:42 BUN 17 mg/dL (7-21) 02/25/17 06:42 Creatinine 0.8 mg/dL (0.5-1.4) 02/25/17 06:42 Est GFR ( Amer) > 60 02/25/17 06:42 Est GFR (Non-Af Amer) > 60 02/25/17 06:42 Random Glucose 86 mg/dL (70-110) 02/25/17 06:42 Lactic Acid 0.8 mmol/L (0.7-2.1) 02/24/17 04:27 Calcium 9.2 mg/dL (8.4-10.5) 02/25/17 06:42 Phosphorus 2.5 mg/dL (2.5-4.5) 02/25/17 06:42 Magnesium 2.0 mg/dL (1.7-2.2) 02/25/17 06:42 Total Bilirubin 0.4 mg/dL (0.2-1.3) 02/25/17 06:42 AST 32 U/L (14-36) 02/25/17 06:42 ALT 42 U/L (7-56) 02/25/17 06:42 Alkaline Phosphatase 56 U/L (38-126) 02/25/17 06:42 Lactate Dehydrogenase 612 U/L (333-699) 02/24/17 21:58 Total Creatine Kinase 152 U/L (35-230) 02/24/17 21:58 CK-MB (CK-2) 3.4 ng/mL (0.0-3.6) 02/24/17 04:27 CK-MB (CK-2) % 1.2 % (2.5-3.0) L 02/23/17 21:30 Troponin I < 0.01 ng/mL 02/24/17 21:58 NT-Pro-B Natriuret Pep 2210 pg/mL (0-450) H 02/23/17 21:30 Total Protein 5.4 g/dL (5.8-8.3) L 02/25/17 06:42 Albumin 3.0 g/dL (3.0-4.8) 02/25/17 06:42 Globulin 2.4 gm/dL 02/25/17 06:42 Albumin/Globulin Ratio 1.3 (1.1-1.8) 02/25/17 06:42 Triglycerides 264 mg/dL (35-160) H 02/24/17 01:53 Cholesterol 164 mg/dL (130-200) 02/24/17 01:53 LDL Cholesterol Direct 95 mg/dL (0-129) 02/24/17 01:53 HDL Cholesterol 29 mg/dL (29-60) 02/24/17 01:53 Lipase 59 U/L (23-300) 02/23/17 21:30 Procalcitonin < 0.05 NG/ML (0.19-0.49) L 02/24/17 04:27 Free T4 1.64 ng/dL (0.78-2.19) 02/24/17 01:53 TSH 3rd Generation 1.18 mIU/mL (0.46-4.68) 02/24/17 01:53 Urine Color Yellow (YELLOW) 02/23/17 21:52 Urine Appearance Clear (CLEAR) 02/23/17 21:52 Urine pH 6.0 (4.7-8.0) 02/23/17 21:52 Ur Specific [place] 1.025 (1.005-1.035) 02/23/17 21:52 Urine Protein Negative mg/dL (<30 mg/dL) 02/23/17 21:52 Urine Glucose (UA) Negative mg/dL (NEGATIVE) 02/23/17 21:52 Urine Ketones Trace mg/dL (NEGATIVE) H 02/23/17 21:52 Urine Blood Trace-intact (NEGATIVE) H 02/23/17 21:52 Urine Nitrate Negative (NEGATIVE) 02/23/17 21:52 Urine Bilirubin Negative (NEGATIVE) 02/23/17 21:52 Urine Urobilinogen 0.2 E.U./dL (<1 E.U./dL) 02/23/17 21:52 Ur Leukocyte Esterase Moderate Magda/uL (NEGATIVE) H 02/23/17 21:52 Urine RBC 1 - 3 /hpf (0-2) 02/23/17 21:52 Urine WBC 20 - 25 /hpf (0-6) 02/23/17 21:52 Ur Epithelial Cells 4 - 5 /hpf (0-5) 02/23/17 21:52 Amorphous Sediment Few 02/23/17 21:52 Urine Bacteria Many (NEG) 02/23/17 21:52 Hyaline Casts 1-3 /hpf 02/23/17 21:52 Fine Granular Casts 0 - 2 /hpf (0-2) 02/23/17 21:52 Urine Other Uyeast 02/23/17 21:52 - Hospital Course Hospital Course: This is patient is a 80 year old vincentian speaking female (visiting from [place]) with a PMHx significant for paroxysmal afib (on Xarelto), pacemaker, LA, CVA, HTN, and CHF who was admitted to ICU for afib with RVR. Symptoms on admission included: fatigue, diaphoresis, chest pressure with radiation to the left jaw, and palpitations. EKG on admission showed a-fb with RVR with no ST changes. Patient was hypotensive in the 70-80s / 50s, and afebrile and no leukocytosis. Cardiology was consulted on the case. Patient also found to have Gram Postive Cocci UTI and was started on antibiotic treatment. Blood and sputum cultures were negative. ID was consulted on the case and recommended Keflex for discharge. Rate was controlled with Metoprolol and Digoxin. Troponins were negative x 3. Echo read normal LV function with EF of 41%. CXR read Hypoinflation; patchy opacity at the left lung base may reflect atelectasis versus developing infiltrate. TSH was normal. CK-MB and total CK were WNL @ time of discharge. Per cardiology, patients home medications are sufficient for rate control with 0.125 digoxin added on. She will follow up with PMD Dr. Middleton within one week for any necessary changes in medication. She will also follow up with hiv nurse if necessary. On day of discharge patient was normotensive and rate was controlled. Patient and daughter (Rachel Rogel) are agreeable with plan and medications. Patient seen, examined, and reviewed with Attending. Armin You PGY-1 - Date & Time of H&P Date of H&P: 02/25/17 Time of H&P: 17:40 Discharge Exam - Head Exam Head Exam: ATRAUMATIC, NORMOCEPHALIC - Eye Exam Eye Exam: EOMI, Normal appearance - ENT Exam ENT Exam: Mucous Membranes Moist - Respiratory Exam Respiratory Exam: Clear to PA & Lateral. absent: Rales, Rhonchi - Cardiovascular Exam Cardiovascular Exam: Irregular Rhythm, +S1, +S2. absent: Tachycardia - GI/Abdominal Exam GI & Abdominal Exam: Normal Bowel Sounds, Soft. absent: Organomegaly, Tenderness - Extremities Exam Extremities exam: normal capillary refill, pedal pulses present Additional comments: Pedal edema - Back Exam Back exam: absent: CVA tenderness (L), CVA tenderness (R) - Neurological Exam Neurological exam: Alert, Oriented x3 - Psychiatric Exam Psychiatric exam: Normal Affect, Normal Mood - Skin Skin Exam: Dry, Intact, Normal Color, Warm Discharge Plan - Discharge Medications Prescriptions: Cephalexin [Keflex] 500 mg PO Q8 #15 cap Digoxin 0.125 mg PO DAILY #30 solution Levothyroxine [Synthroid] 112 mcg PO 0600 #30 tab Rivaroxaban [Xarelto] 20 mg PO DAILY #30 tab Simvastatin [Zocor] 20 mg PO DAILY #30 tablet - Follow Up Plan Condition: FAIR Disposition: HOME/ ROUTINE Instructions: Chest Pain (DC), Urinary Tract Infection in Women (DC) Additional Instructions: 1. Follow up with Dr. Fagan in 1 week (follow up with Dr. Fagan for clarification on when flying is safe for patient). 2. Follow up with Cardiology(heart doctor) as needed. 3. Continue all medications, including new prescriptions. New Prescriptions- Keflex 500 mg by mouth every 8 hours. If possible, continue tonight as prescribed. Digoxin 0.125 mg or 2.5 mls by mouth once a day. Take today as prescribed. [facility] PHONE NUMBER- [phone] <Ajay Chavez - Last Filed: 02/26/17 08:34> Provider - Provider Date of Admission: 02/23/17 23:09 Attending physician: Ajay Chavez MD Hospital Course - Lab Results Lab Results: Micro Results 02/24/17 02:30 Naris MRSA Culture (Admit) - Final MRSA NOT DETECTED 02/24/17 11:50 Blood Blood Culture - Preliminary NO GROWTH AFTER 24 HOURS 02/24/17 11:30 Blood Blood Culture - Preliminary NO GROWTH AFTER 24 HOURS Most Recent Lab Values WBC 5.6 10^3/ul (4.5-11.0) D 02/25/17 06:42 RBC 4.17 10^6/uL (3.5-6.1) 02/25/17 06:42 Hgb 11.5 g/dL (12.0-16.0) L 02/25/17 06:42 Hct 36.8 % (36.0-48.0) 02/25/17 06:42 MCV 88.2 fl (80.0-105.0) 02/25/17 06:42 MCH 27.6 pg (25.0-35.0) 02/25/17 06:42 MCHC 31.3 g/dl (31.0-37.0) 02/25/17 06:42 RDW 16.3 % (11.5-14.5) H 02/25/17 06:42 Plt Count 105 10^3/uL (120.0-450.0) L 02/25/17 06:42 MPV 11.0 fl (7.0-11.0) 02/25/17 06:42 Gran % 56.4 % (50.0-68.0) 02/25/17 06:42 Lymph % (Auto) 29.4 % (22.0-35.0) 02/25/17 06:42 Collin % (Auto) 11.2 % (1.0-6.0) H 02/25/17 06:42 Eos % (Auto) 2.3 % (1.5-5.0) 02/25/17 06:42 Baso % (Auto) 0.7 % (0.0-3.0) 02/25/17 06:42 Gran # 3.18 (1.4-6.5) 02/25/17 06:42 Lymph # 1.7 (1.2-3.4) 02/25/17 06:42 Collin # 0.6 (0.1-0.6) 02/25/17 06:42 Eos # 0.1 (0.0-0.7) 02/25/17 06:42 Baso # 0.04 K/mm3 (0.0-2.0) 02/25/17 06:42 PT 10.9 Seconds (9.9-11.8) 02/23/17 21:30 INR 1.01 (0.93-1.08) 02/23/17 21:30 APTT 25.7 Seconds (23.7-30.8) 02/23/17 21:30 D-Dimer, Quantitative 0.27 mg/L FEU (0-0.50) 02/23/17 21:30 Sodium 142 mmol/L (132-148) 02/25/17 06:42 Potassium 5.2 mmol/L (3.6-5.0) H 02/25/17 06:42 Chloride 112 mmol/L (98-107) H 02/25/17 06:42 Carbon Dioxide 26 mmol/L (21-33) 02/25/17 06:42 Anion Gap 9 (10-20) L 02/25/17 06:42 BUN 17 mg/dL (7-21) 02/25/17 06:42 Creatinine 0.8 mg/dL (0.5-1.4) 02/25/17 06:42 Est GFR ( Amer) > 60 02/25/17 06:42 Est GFR (Non-Af Amer) > 60 02/25/17 06:42 Random Glucose 86 mg/dL (70-110) 02/25/17 06:42 Lactic Acid 0.8 mmol/L (0.7-2.1) 02/24/17 04:27 Calcium 9.2 mg/dL (8.4-10.5) 02/25/17 06:42 Phosphorus 2.5 mg/dL (2.5-4.5) 02/25/17 06:42 Magnesium 2.0 mg/dL (1.7-2.2) 02/25/17 06:42 Total Bilirubin 0.4 mg/dL (0.2-1.3) 02/25/17 06:42 AST 32 U/L (14-36) 02/25/17 06:42 ALT 42 U/L (7-56) 02/25/17 06:42 Alkaline Phosphatase 56 U/L (38-126) 02/25/17 06:42 Lactate Dehydrogenase 612 U/L (333-699) 02/24/17 21:58 Total Creatine Kinase 152 U/L (35-230) 02/24/17 21:58 CK-MB (CK-2) 3.4 ng/mL (0.0-3.6) 02/24/17 04:27 CK-MB (CK-2) % 1.2 % (2.5-3.0) L 02/23/17 21:30 Troponin I < 0.01 ng/mL 02/24/17 21:58 NT-Pro-B Natriuret Pep 2210 pg/mL (0-450) H 02/23/17 21:30 Total Protein 5.4 g/dL (5.8-8.3) L 02/25/17 06:42 Albumin 3.0 g/dL (3.0-4.8) 02/25/17 06:42 Globulin 2.4 gm/dL 02/25/17 06:42 Albumin/Globulin Ratio 1.3 (1.1-1.8) 02/25/17 06:42 Triglycerides 264 mg/dL (35-160) H 02/24/17 01:53 Cholesterol 164 mg/dL (130-200) 02/24/17 01:53 LDL Cholesterol Direct 95 mg/dL (0-129) 02/24/17 01:53 HDL Cholesterol 29 mg/dL (29-60) 02/24/17 01:53 Lipase 59 U/L (23-300) 02/23/17 21:30 Procalcitonin < 0.05 NG/ML (0.19-0.49) L 02/24/17 04:27 Free T4 1.64 ng/dL (0.78-2.19) 02/24/17 01:53 TSH 3rd Generation 1.18 mIU/mL (0.46-4.68) 02/24/17 01:53 Urine Color Yellow (YELLOW) 02/23/17 21:52 Urine Appearance Clear (CLEAR) 02/23/17 21:52 Urine pH 6.0 (4.7-8.0) 02/23/17 21:52 Ur Specific [place] 1.025 (1.005-1.035) 02/23/17 21:52 Urine Protein Negative mg/dL (<30 mg/dL) 02/23/17 21:52 Urine Glucose (UA) Negative mg/dL (NEGATIVE) 02/23/17 21:52 Urine Ketones Trace mg/dL (NEGATIVE) H 02/23/17 21:52 Urine Blood Trace-intact (NEGATIVE) H 02/23/17 21:52 Urine Nitrate Negative (NEGATIVE) 02/23/17 21:52 Urine Bilirubin Negative (NEGATIVE) 02/23/17 21:52 Urine Urobilinogen 0.2 E.U./dL (<1 E.U./dL) 02/23/17 21:52 Ur Leukocyte Esterase Moderate Magda/uL (NEGATIVE) H 02/23/17 21:52 Urine RBC 1 - 3 /hpf (0-2) 02/23/17 21:52 Urine WBC 20 - 25 /hpf (0-6) 02/23/17 21:52 Ur Epithelial Cells 4 - 5 /hpf (0-5) 02/23/17 21:52 Amorphous Sediment Few 02/23/17 21:52 Urine Bacteria Many (NEG) 02/23/17 21:52 Hyaline Casts 1-3 /hpf 02/23/17 21:52 Fine Granular Casts 0 - 2 /hpf (0-2) 02/23/17 21:52 Urine Other Uyeast 09/01/17 21:52 Attending/Attestation - Attestation I have personally seen and examined this patient.: Yes I have fully participated in the care of the patient.: Yes I have reviewed all pertinent clinical information, including history, physical exam and plan: Yes Notes (Text): 02/26/17 08:30 Attending note; Patient seen and examined with resident. Translation phone used. Patient is a 76-year-old Sami female with a past medical history of pacemaker AICD, hypertension, A. fib is admitted with rapid A. fib. Treated with beta blockers and digoxin. Patient recently came from [place]. Staying with daughter in [place]. Continue home medications; xarelto, sotalol, Diovan, Lipitor, spironolactone. Medications reviewed with cardiology Dr. Redding. UTI; treated with IV Rocephin. New prescriptions; digoxin and Keflex. Medication reconciled with patient's daughter. Upon discharge the patient will follow-up with PMD . Follow-up with cardiology of choice. Diagnosis; Rapid A. fib AICD Hypertension 02/26/17 08:33
--- NOTE | 2017-02-26 07:18 | CARD ---
APPROVED REPORT EKG Measurement Heart [id number] <Conclusion> Normal sinus rhythm Normal ECG
--- NOTE | 2017-02-26 08:15 | CP.PCM.HP ---
History of Present Illness - History of Present Illness History of Present Illness: Monisha Nicole, PGY1, Consult Note for Dr. Baron/ICU: CC: chest pressure, palpitations 80 Pashto speaking female with PMH significant for afib, CHF, HTN, pacemaker, [place] , presents for chest pressure and palpitations x 24hrs [employer]. Pt just landed from her flight yesterday night from [place], and started feeling fatigues, diaphoretic, chest pressure, radiating to left jaw, palpitations. Pt also c/o mild productive cough, denies f/c/n/v, poor appetite, poor oral intake, sob, hemoptysis, pleutric cp, dysuria, frq, hematuria, h/a, leg swelling. Pt's daughter took BP at home and pt founf to be hypotensive, BP 64/42, 90/60, with some denies dizziness, syncope. In ED, pt found to be in afib with RVR, HR 122 , no st changes, hypotensive 70-80s/50s, neg d dimer, trop negx1, bnp 2210, ck mb 5.2. Received ASA 325 mgx1, lopressor 5mg IVx1, 1L NS bolus, Ciprox1, UA + UTI Currently, pt still hypotensive, afib with HR 115, denies chest pressure, + palpitations. ICU consulted for management of afib with RVR with underlying UTI. 10 point ROS obtained and neg except as per HPI. PMH: afib, L sided pacemaker, [place] x 1 stent, CVA, HTN, hypothyroidism, CHF PSH: thryoidectomy, uterine fibroid removal ALL: NKA SH: Mom, htn Brother HTN FH: denies alcohol, tobacco, drug use. lives with daughter's apt in [place]. Flew from [place] last night. Walks by self, fully functional. No PMD in [place]; f/u regularly with PMD in [place] Review of Systems - Review of Systems All systems: reviewed and no additional remarkable complaints except Review of Systems: as per HPI Past Patient History - Infectious Disease Hx of Infectious Diseases: None - Tetanus Immunizations Tetanus Immunization: Unknown - Past Social History Smoking Status: no - CARDIAC Hx Cardia Arrhythmia: Yes Hx Heart Attack: Yes Hx Hypertension: Yes Hx Pacemaker: Yes - NEUROLOGICAL HX Cerebrovascular Accident: Yes - ENDOCRINE/METABOLIC Hx Hypothyroidism: Yes - PSYCHIATRIC Hx Depression: No Hx Emotional Abuse: No Hx Physical Abuse: No Hx Substance Use: No Meds Allergies/Adverse Reactions: Allergies Allergy/AdvReac Type Severity Reaction Status Date / Time No Known Allergies Allergy Verified 05/23/13 10:53 - Medications Medications: Current Medications Acetaminophen (Tylenol 325mg Tab) 650 mg PO Q6H PRN PRN Reason: Pain, moderate (4-7) Aspirin (Aspirin Chewable) 81 mg PO DAILY JOSE F Atorvastatin Calcium (Lipitor) 20 mg PO HS JOSE F Ciprofloxacin (Cipro) 250 mg PO Q12H JOSE F PRN Reason: Protocol Amiodarone HCl/Dextrose (Nexterone 360 Mg In D5w 200 Ml (Premix)) 360 mg in 200 mls @ 16.667 mls/hr IV .Q12H JOSE F; 0.5 MG/MIN PRN Reason: Protocol Sodium Chloride (Sodium Chloride 0.9%) 1,000 mls @ 75 mls/hr IV .[id number] ONE Stop: 02/24/17 14:02 Metoprolol Tartrate (Lopressor) 25 mg PO BID JOSE F Pantoprazole Sodium (Protonix Susp) 40 mg PO 0600,1600 JOSE F Rivaroxaban (Xarelto) 20 mg PO DAILY JOSE F PRN Reason: Protocol Physical Exam - Constitutional Appears: Non-toxic, No Acute Distress, Younger Than Stated Age - Head Exam Head Exam: ATRAUMATIC, NORMOCEPHALIC - Eye Exam Eye Exam: EOMI, PERRL Pupil Exam: NORMAL ACCOMODATION, PERRL. absent: Irregular, Unequal - ENT Exam ENT Exam: Mucous Membranes Moist - Neck Exam Neck exam: Positive for: Normal Inspection. Negative for: Lymphadenopathy, Thyromegaly - Respiratory Exam Respiratory Exam: Decreased Breath Sounds, NORMAL BREATHING PATTERN. absent: Accessory Muscle Use - Cardiovascular Exam Cardiovascular Exam: Tachycardia, Irregular Rhythm. absent: Systolic Murmur - GI/Abdominal Exam GI & Abdominal Exam: Normal Bowel Sounds, Soft. absent: Guarding, Tenderness - Extremities Exam Extremities exam: Negative for: calf tenderness, pedal edema - Neurological Exam Neurological exam: Alert, Oriented x3 - Psychiatric Exam Psychiatric exam: Normal Mood - Skin Skin Exam: Dry, Warm Results - Vital Signs Recent Vital Signs: Last Vital Signs Temp 97.7 F 02/23/17 21:10 Pulse 104 H 02/23/17 23:54 Resp 16 02/23/17 23:54 BP 97/58 L 02/23/17 23:54 Pulse Ox 97 02/23/17 23:54 - Labs Result Diagrams: 02/23/17 21:30 02/23/17 21:30 Assessment & Plan - Assessment and Plan (Free Text) Assessment: 80F with PMH significant for paroxysmal afib, pacemaker, [place], CVA, HTN, CHF, admitted to ICU for afib with RVR triggered by underlying UTI. Pt also found to be in acute on chronic CHF exacerbation, r/o ACS. Plan: Afib with RVR 2/2 likely underlying UTI: - Pt has a hx of afib, diagnosed 2 years ago. On home xarelto and biosotal in [place]. - EKG shows HR 122, afib with RVR, no st changes. - Hypotensive 70-80's/50s, afebrile. Admit to ICU. - received lopressor 5mg IV x1, 1L NS bolus and Ciprox1 in ED - Started on Amiodarone drip, amio bolus given. Will hold IVF bc hx of CHF. - Will start metoprolol 25 mg PO BID - VS q1h, f/u cardio c/s - Tylenol prn pain; Started on Cipro for UTI - C/w home xarelto - f.u CXR Chest pain, r/o ACS: - trop neg x1, f/u serial trops with EKG - EKG shows no ST changes. - f/u lipid panel, tsh, hgb a1c Hx of CHF: - f/u Echo, will hold home diuretics Hx of L sided pacemaker: - Likely due to elevated HR and decreasing BP - Cardio c/d placed, please interrogate pacemaker Hx HTN: - currently hypotensive. will hold home anti HTN meds. Hx of Hypothyroidism 2/2 thryoidectomy in the past: - home med dosage not known - will f/u tsh, f4 and determine synthroid usage inpatient GI ppx: protonix DVT ppx: xarelto Discussed with attending, Dr Loraine Nicole, PGY1 - Date & Time Date: 02/24/17 Present on Admission - Present on Admission Any Indicators Present on Admission: No Past Patient History - Infectious Disease Hx of Infectious Diseases: None - Tetanus Immunizations Tetanus Immunization: Unknown - Past Social History Smoking Status: Smoker Currrent Status Unknown - CARDIAC Hx Cardia Arrhythmia: Yes Hx Hypertension: Yes Hx Pacemaker: Yes - NEUROLOGICAL HX Cerebrovascular Accident: Yes - ENDOCRINE/METABOLIC Hx Hypothyroidism: Yes - MUSCULOSKELETAL/RHEUMATOLOGICAL Hx Falls: Yes (a year ago) - PSYCHIATRIC Hx Depression: No Hx Emotional Abuse: No Hx Physical Abuse: No Hx Substance Use: No Meds Home Medications: Home Medication List Medication Instructions Recorded Confirmed Type Cephalexin [Keflex] 500 mg PO Q8 #15 cap 02/25/17 Rx Digoxin 0.125 mg PO DAILY #30 solution 02/25/17 Rx Levothyroxine [Synthroid] 112 mcg PO 0600 #30 tab 02/25/17 Rx Rivaroxaban [Xarelto] 20 mg PO DAILY #30 tab 02/25/17 Rx Simvastatin [Zocor] 20 mg PO DAILY #30 tablet 02/25/17 Rx Allergies/Adverse Reactions: Allergies Allergy/AdvReac Type Severity Reaction Status Date / Time No Known Allergies Allergy Verified 05/23/13 10:53 Results - Vital Signs Recent Vital Signs: Last Vital Signs Temp 97 F L 02/25/17 11:17 Pulse 101 H 02/25/17 11:17 Resp 18 02/25/17 11:17 BP 130/77 02/25/17 11:17 Pulse Ox 97 02/25/17 06:00 - Labs Result Diagrams: 02/25/17 06:42 02/25/17 06:42 Attending/Attestation - Attestation I have personally seen and examined this patient.: Yes I have fully participated in the care of the patient.: Yes I have reviewed all pertinent clinical information: Yes Notes (Text): 02/26/17 08:16 -I agree with the above H&P completed by the resident physician.
== END 2017-02-25 12:17 | disposition home or self-care (01) ==
LOC: ED 21:09 → ERH 23:09 → CCU 02-24 02:32 → 2RSO 02-25 00:28
PROVIDERS: ADMIT Internal Medicine; ATTEND Internal Medicine
DX: I48.0 Paroxysmal atrial fibrillation (principal); N39.0 Urinary tract infection, site not specified; I50.9 Heart failure, unspecified; I13.0 Hypertensive heart and chronic kidney disease with heart failure and stage 1 through stage 4 chronic kidney disease, or unspecified chronic kidney disease; N18.9 Chronic kidney disease, unspecified; I25.10 Atherosclerotic heart disease of native coronary artery without angina pectoris; I48.2 Chronic atrial fibrillation; E86.0 Dehydration; E03.9 Hypothyroidism, unspecified; I25.2 Old myocardial infarction; Z86.73 Personal history of transient ischemic attack (TIA), and cerebral infarction without residual deficits; Z79.01 Long term (current) use of anticoagulants; Z95.810 Presence of automatic (implantable) cardiac defibrillator
CPT/HCPCS: 36415; 71010; 80053; 80061; 81001; 82550; 82553; 83036; 83605; 83615; 83690; 83735; 83880; 84100; 84145; 84439; 84443; 84484; 85025; 85378; 85610; 85730; 87040; 87081; 87086; 93005; 93306; 96374; 99285; G0378; J0696; J0744; J1160; J7040; Q9967